=== PATIENT | male | born 1955 | race Caucasian/White ===

== ENCOUNTER → 2019-10-06 | Outpatient (CLI) | payer MEDICARE ==
--- NOTE | 2019-10-06 08:30 | CTL ---
EXAMINATION TYPE: CT Low Dose Lung DATE OF EXAM ORDERED: 10/06/2019 HISTORY: Personal history of tobacco abuse. Lung cancer screening CT DLP: 91.[address] CTDI: 2.4 mGy Automated exposure control for dose reduction was used. SCREENING VISIT: Initial COMPARISON: None TECHNIQUE: Low dose computed tomography scan was performed through the chest at 1 mm thick sections a nd reconstructed images in the coronal plane at [address] DIAGNOSTIC QUALITY: Satisfactory FINDINGS: LUNG NODULES: Present, detailed below: There is a 1 mm solid nodule and the anterolateral right upper lobe on series 4 image 104. There is a 1 mm solid nodule of the left lung apex on series 4 image 57. There is a 3 mm calcified nodule of the left lower lobe on series 4 image 261. LUNGS: COPD: Severity: mild Fibrosis: Severity: none Lymph nodes: none enlarged RIGHT PLEURAL SPACE: Effusion: None Calcification: None Thickening: None Pneumothorax: None LEFT PLEURAL SPACE: Effusion: None Calcification: None Thickening: None Pneumothorax: None HEART: Heart Size: None Coronary calcification: None Pericardial effusion: None OTHER FINDINGS: Upper abdomen: Unenhanced Bony thorax: Mild multilevel degenerative change of the spine. Sclerotic lesion of the T10 vertebral body is indeterminant but isn't contiguous with the endplates and may be degenerative. This measures 1.5 x 1.1 cm. Supraclavicular region: Unremarkable IMPRESSION: 1. Lung RADS 2-benign appearance or behavior. Nodules with a very low likelihood of becoming a clinic ally significant cancer due to small size. Annual low dose CT is recommended in 12 months. 2. Indeterminant sclerotic lesion of T10. This could be degenerative. If there [facility] could be considered. FOLLOW UP CT CHEST RECOMMENDATION: Annual low dose CT is recommended in [address] LUNG RAD: 2
== END | disposition home or self-care (01) ==
LOC: RADCTMAIN 07:38
PROVIDERS: ATTEND Family Medicine
DX: Z13.6 Encounter for screening for cardiovascular disorders (principal); Z12.2 Encounter for screening for malignant neoplasm of respiratory organs; F17.210 Nicotine dependence, cigarettes, uncomplicated
CPT/HCPCS: 93005; G0297

== ENCOUNTER → 2020-05-17 | Outpatient (CLI) | payer MEDICARE | END | disposition home or self-care (01) | LOC: LABWHC1 15:33 | PROVIDERS: ATTEND Family Medicine | DX: Z20.828 Contact with and (suspected) exposure to other viral communicable diseases (principal) | CPT/HCPCS: U0003; C9803 ==

== ENCOUNTER → 2021-08-22 | Outpatient (CLI) | payer MEDICARE ==
--- NOTE | 2021-08-23 07:31 | XR ---
EXAMINATION TYPE: XR foot complete RT DATE OF EXAM: 08/22/2021 CLINICAL HISTORY: pain TECHNIQUE: Frontal, lateral and oblique images of the right foot are obtained. COMPARISON: None. FINDINGS: There is no acute fracture/dislocation evident. Moderate to severe degenerative change of first metatarsal phalangeal joint with bony spurring subchondral sclerosis seen. Degenerative narrowi ng of first interphalangeal joint noted as well. The overlying soft tissue appears unremarkable. IMPRESSION: There is no acute fracture or dislocation. ICD 10 NO FRACTURE, INITIAL EVALUATION
== END | disposition home or self-care (01) ==
LOC: RADXRMAIN 17:30
PROVIDERS: ATTEND Family Medicine
DX: M79.674 Pain in right toe(s) (principal)

== ENCOUNTER 2022-04-01 06:50 | Day surgery (SDC) | payer MEDICARE ==
[2022-03-28 09:44] VITALS: BMI 34.2
[~2022-04-01 06:50] MED LIST: LACTATED RINGERS 1,000 ML IV SCH; LIDOCAINE 1% (10MG/ML) FOR IV START INTRADERMA PRN
[2022-04-01 07:18] VITALS: RESP 16; TEMP 97
[2022-04-01] MEDS ORDERED: PROPOFOL 10 MG/ML 20 ML VIAL IV ONE (08:12)
[2022-04-01] MEDS ORDERED: LIDOCAINE 2% INJ 20 MG/ML (2 ML VIAL) ONE (08:12)
--- NOTE | 2022-04-01 08:31 | P.PCN ---
Date of Procedure: 04/01/22 Procedure(s) Performed: BRIEF HISTORY: Patient is a 66-year-old pleasant white male scheduled for an elective colonoscopy as a part of evaluation of prior history of colon polyps and intermittent rectal bleeding. PROCEDURE PERFORMED: Colonoscopy. PREOPERATIVE DIAGNOSIS: History of colon polyps. IV sedation per Anesthesia. PROCEDURE: After informed consent was obtained, the patient, was brought into the endoscopy unit. IV sedation was administered by Anesthesia under continuous monitoring. Digital rectal examination was normal. Initially the Olympus CF-160 flexible video colonoscope was then inserted in the rectum, gradually advanced into the cecum without any difficulty. Careful examination was performed as the scope was gradually being withdrawn. Ileocecal valve and the appendiceal orifice were visualized and appeared normal. Prep was excellent. Mucosa of the cecum, ascending colon, transverse colon, descending colon, sigmoid colon, and rectum appeared normal. Scattered sigmoid diverticulosis. Retroflexion was performed in the rectum and grade 2 internal hemorrhoids were seen. The patient tolerated the procedure well. IMPRESSION: Normal-appearing colon from rectum to cecum with no evidence of colorectal neoplasia . Scattered sigmoid diverticulosis Grade 2 internal hemorrhoids RECOMMENDATIONS: Findings of this examination were discussed with the patient as well as his family. He was advised to be a high-fiber diet and take fiber supplements a regular basis and avoid straining and constipation. Recommend repeat screening colonoscopy in 10 years..
[2022-04-01 08:55] VITALS: BP 108/64; PULSE 70
== END 2022-04-01 09:16 | disposition home or self-care (01) ==
LOC: ORWHC2ENDO 06:50
PROVIDERS: ATTEND Internal Medicine Gastroenterology
DX: Z12.11 Encounter for screening for malignant neoplasm of colon (principal); K57.30 Diverticulosis of large intestine without perforation or abscess without bleeding; K64.8 Other hemorrhoids; F17.210 Nicotine dependence, cigarettes, uncomplicated; Z86.010 Personal history of colon polyps
CPT/HCPCS: J2704; J2001; G0105; 45378

== ENCOUNTER → 2022-06-06 | Outpatient (CLI) | payer MEDICARE ==
--- NOTE | 2022-06-09 13:31 | MR ---
EXAMINATION TYPE: MR knee LT wo con DATE OF EXAM: 06/06/2022 COMPARISON: Knee radiograph 06/06/2022 HISTORY: Left knee pain TECHNIQUE: Multiplanar, multisequence imaging of the left knee is performed without IV contrast. FINDINGS: MEDIAL MENISCUS: Complex tear of both the posterior horn which extends into the meniscal body. There is a flipped component felt to be within the intercondylar fossa posteriorly (series 501 image 26 and 701 image 13) additional degeneration with high signal extending to the surface along the meniscal b inessa suggestive of a longitudinal tear on the undersurface. Anterior horn appears intact. LATERAL MENISCUS: Anterior and posterior horns are intact without tear. CRUCIATE LIGAMENTS: The anterior and posterior cruciate ligaments are intact and unremarkable. COLLATERAL LIGAMENTS: Lateral collateral ligament low-grade sprain near the insertion on the femur wi th intermediate signal within the ligament. EXTENSOR MECHANISM: Visualized quadriceps and patellar tendons are intact. EFFUSION: Small joint effusion is present. POPLITEAL CYST: There is a popliteal Saeed's cyst measuring up to 19 x 5 x 30 mm. TRICOMPARTMENT SPACES: Mild osteophyte formation of the tibial plateau and patella. CARTILAGE: Mild cartilage thinning within the compartments most pronounced along the patella medial p atellar facet. No full-thickness defects visualized. BONE MARROW SIGNAL: No focal abnormal marrow signal is appreciated. OTHER: No additional significant abnormality is appreciated. IMPRESSION: 1. Complex medial meniscus posterior horn tear with flipped component within the intercondylar fossa . 2. Low-grade lateral collateral ligament femoral attachment sprain. 3. Small joint effusion 4. Mild osteoarthrosis without full-thickness cartilage defect.
== END | disposition home or self-care (01) ==
LOC: RADMRIMAIN 12:15
PROVIDERS: ATTEND Orthopaedic Surgery
DX: M17.12 Unilateral primary osteoarthritis, left knee (principal); M23.322 Other meniscus derangements, posterior horn of medial meniscus, left knee; M25.462 Effusion, left knee; M25.562 Pain in left knee

== ENCOUNTER → 2022-06-27 | Outpatient (CLI) | payer MEDICARE | END | disposition home or self-care (01) | LOC: LABPAT 10:42 | PROVIDERS: ATTEND Orthopaedic Surgery | DX: Z01.812 Encounter for preprocedural laboratory examination (principal); M23.92 Unspecified internal derangement of left knee | CPT/HCPCS: 93005 ==

== ENCOUNTER 2022-07-03 09:37 | Day surgery (SDC) | payer MEDICARE ==
--- NOTE | 2022-07-02 23:31 | HP ---
HISTORY AND PHYSICAL DATE OF SURGERY: 07/03/2022. HISTORY OF PRESENT ILLNESS: Hermilo Landrum is a 67-year-old gentleman seen with progressive left knee pain. We discussed options for treatment. He elected to proceed with left knee arthroscopy, consent was obtained. PAST MEDICAL HISTORY: Noncontributory. SURGICAL HISTORY: Noncontributory. DAILY MEDICATIONS: None reported. SOCIAL HISTORY: Smokes cigarettes. PHYSICAL EVALUATION OF LEFT KNEE: Range of motion 0 to 130. Tenderness along the medial joint line, tenderness on the lateral joint line. Positive medial Valery's. Positive lateral Valery's. Ligaments are stable. Hip rotation without pain. Distal neurovascular exam is intact. RADIOGRAPHS: Left knee radiographs reveal mild osteoarthritis. MRI left knee revealed medial meniscal tear. IMPRESSION: Internal derangement of left knee with medial meniscal tear. PLAN: Left knee arthroscopy with partial medial meniscectomy and debridement. MMODL / IJN: [id number] /
[~2022-07-03 09:37] MED LIST changes: +DEXAMETHASONE SOD PHOSPHATE 4 MG/ML 1 ML VIAL IV ONE; +HYDROmorphone 0.5 MG/0.5 ML SYRINGE IVP PRN; -LIDOCAINE 1% (10MG/ML) FOR IV START INTRADERMA PRN; +ONDANSETRON 4 MG/2 ML VIAL IVP ONE
[2022-07-03] MEDS ORDERED: LIDOCAINE 1% (10MG/ML) FOR IV START INTRADERMA ONE (10:15)
[2022-07-03] MEDS ORDERED: BUPIVACAINE (PF) 0.25% 30 ML VIAL SQ ONE ×2 (10:29→11:11)
[2022-07-03] MEDS ORDERED: LIDOCAINE 2% INJ 20 MG/ML (2 ML VIAL) ONE (10:32)
[2022-07-03] MEDS ORDERED: SUCCINYLCHOLINE CHLORIDE 200 MG/10 ML VIAL IV ONE (10:32)
[2022-07-03] MEDS ORDERED: PROPOFOL 10 MG/ML 20 ML VIAL IV ONE (10:32)
[2022-07-03] MEDS ORDERED: MIDAZOLAM 2 MG/2 ML VIAL ONE (10:32)
[2022-07-03] MEDS ORDERED: fentaNYL (PF) 50 MCG/ML 2 ML AMP ONE (10:32)
[2022-07-03 11:27] VITALS: TEMP 97
--- NOTE | 2022-07-03 11:27 | P.OP ---
Date of Procedure: 07/03/22 Preoperative Diagnosis: Internal derangement left knee Postoperative Diagnosis: 1. Tear medial meniscus left knee 2. Grade 2 chondromalacia medial femoral condyle left knee 3. Reactive synovitis medial, lateral and suprapatellar compartments left knee Procedure(s) Performed: 1. Arthroscopic partial medial meniscectomy left knee 2. Arthroscopic chondroplasty medial femoral condyle left knee 3. Arthroscopic partial synovectomy medial, lateral and suprapatellar compartments left knee Anesthesia: CANDIDAA, local Surgeon: Hema Wang Estimated Blood Loss (ml): 10 Pathology: none sent Condition: stable Disposition: PACU Indications for Procedure: 67-year-old patient seen with progressive left knee pain. After treatment options were discussed, he elected to proceed with arthroscopy. Operative Findings: See description of procedure Description of Procedure: Patient was taken to the operative suite. Patient underwent a general anesthetic by the department of anesthesia. Patient was given preoperative antibiotics. The left lower extremity was placed in a well-padded arthroscopic leg mullins. The left leg was prepped and draped in the normal sterile orthopedic fashion. A lateral parapatellar and suprapatellar incision was made. Trochars were inserted. Arthroscopy was initiated. Suprapatellar pouch revealed diffuse thick reactive synovitis. The patellofemoral joint appeared to articulate congruently. There was grade 1/2 chondromalacia of the patellofemoral joint without tears. The scope was guided into the medial gutter. No loose bodies or plica were identified. The scope was then guided in to the medial compartment. A medial parapatellar incision was made. Trocar inserted followed by probe. There was a complex tear involving the posterior horn of the medial meniscus. There were grade 2 chondromalacia changes medial femoral condyle with some osteochondral flap tears present. There was some thick reactive synovitis anteriorly. I performed a partial medial meniscectomy getting down to stable meniscal tissue. I performed a chondroplasty of the medial femoral condyle getting down to stable osteochondral tissue. I performed a partial synovectomy decompressing the reactive synovitis. The residual meniscus was stable. The residual osteochondral surface was stable. There was good decompression of the synovitis. Scope and probe were then guided into the intercondylar notch. Cruciates were identified, probed and found to be stable. The scope and probe were then guided into lateral compartment. Lateral meniscus was found to be stable. There were mild grade 1 chondral moist changes lateral compartment without tears. There was some thick reactive synovitis anteriorly. I introduced a motorized shaver and performed a partial synovectomy. Shaver was now removed. There was good decompression of the synovitis. The scope was in guided back into the suprapatellar compartment. I introduced a motorized shaver into the suprapatellar compartment. I debrided some piecemeal fragments of meniscus I encountered. I performed a partial synovectomy. Shaver was now removed. There was good decompression of the synovitis. I took one more look around the entire knee, no residual debris. Instruments were now removed from the joint. The joint was infiltrated with .25% Marcaine. Steri-Strips were applied to the portal sites. Sterile dressings were applied. The patient was placed into a MARIA ISABEL hose. No tourniquet was utilized. The patient was awakened, transferred to a bed and taken to recovery stable satisfactory condition.
[2022-07-03] MEDS ORDERED: HYDROcodone/APAP 5-325MG 1 EACH TAB ONE (12:15)
[2022-07-03 12:43] VITALS: BP 151/72; PULSE 76; RESP 18
== END 2022-07-03 13:09 | disposition home or self-care (01) ==
LOC: OR 09:37
PROVIDERS: ATTEND Orthopaedic Surgery
DX: S83.242A Other tear of medial meniscus, current injury, left knee, initial encounter (principal); M17.12 Unilateral primary osteoarthritis, left knee; M94.262 Chondromalacia, left knee; F17.210 Nicotine dependence, cigarettes, uncomplicated; M65.88 Other synovitis and tenosynovitis, other site; X58.XXXA Exposure to other specified factors, initial encounter
CPT/HCPCS: 29881; J2250; J0330; J1100; J0690; J2405; J3010; J2704; J2001

== ENCOUNTER → 2023-06-01 | Outpatient (CLI) | payer MEDICARE ==
--- NOTE | 2023-06-01 12:40 | CTL ---
EXAMINATION TYPE: CT Low Dose Lung DATE OF EXAM ORDERED: 06/01/2023 HISTORY: Z12.2,Z87.891 PERSONAL HISTORY OF NICOTINE DEPENDE. Lung cancer screening. Current smoker, [address] DLP: 137.[address] CTDI: 3.6 mGy Automated exposure control for dose reduction was used. SCREENING VISIT: Follow-up COMPARISON: CT low-dose lung cancer screening 10/06/2019 TECHNIQUE: Low dose computed tomography scan was performed through the chest at 1 mm thick sections a nd reconstructed images in multiple planes at 1 mm and [address] DIAGNOSTIC QUALITY: Satisfactory FINDINGS: LUNG NODULES: Calcified granuloma within the left lung base. Stable right upper lobe 2 mm pulmonary n odule (series 6, image 20). Stable left apical 2 mm pulmonary nodule (series 6, image 8). No new or e nlarging pulmonary nodules. LUNGS: COPD: Severity: Mild Fibrosis: Severity: None Lymph nodes: None Other findings: None RIGHT PLEURAL SPACE: Effusion: None Calcification: None Thickening: None Pneumothorax: None LEFT PLEURAL SPACE: Effusion: None Calcification: None Thickening: None Pneumothorax: None HEART: Heart Size: Normal Coronary Calcification: None Pericardial Effusion: None OTHER FINDINGS: Upper abdomen: None Bony thorax: Mild degenerative changes of the thoracic spine. Stable sclerosis involving the anterior inferior aspect of the T10 vertebral body from 2019 and consider benign. Supraclavicular region: None Other: None IMPRESSION: 1. Stable pulmonary nodules dating back to 2019 consider benign. No new or enlarging pulmonary nodule s. 2. Mild COPD changes. CT LUNG RAD AND CT CHEST RECOMMENDATION: Lung-Rad 2 Benign Appearance or Behavior: Continue annual sc reening with LDCT in 12 months. S Modifier (other clinically significant findings): None
== END | disposition home or self-care (01) ==
LOC: RADCTMAIN 11:32
PROVIDERS: ATTEND Family Medicine
DX: Z12.2 Encounter for screening for malignant neoplasm of respiratory organs (principal); J44.9 Chronic obstructive pulmonary disease, unspecified; R91.8 Other nonspecific abnormal finding of lung field; F17.210 Nicotine dependence, cigarettes, uncomplicated
CPT/HCPCS: 71271

== ENCOUNTER → 2024-08-12 | Outpatient (CLI) | payer MEDICARE ==
--- NOTE | 2024-08-12 11:35 | CTL ---
EXAMINATION TYPE: CT Low Dose Lung DATE OF EXAM ORDERED: 08/12/2024 COMPARISON: Prior CT is 2022 and 2019 CLINICAL INDICATION: Male, 69 years old with history of F17.210 nicotine dependence; PHH, Current smo ker. 1PPD x54yrs., Lung cancer screening, History of Smoking/tobacco use. TECHNIQUE: Low dose computed tomography scan was performed through the chest at 1 mm thick sections a nd reconstructed images in multiple planes at 1 mm and [address] DLP: 156.[address] CTDI: 4.2 mGy Automated exposure control for dose reduction was used. CT DIAGNOSTIC QUALITY: Satisfactory FINDINGS: Nodules: No new or enlarging greater than 6 mm pulmonary nodules RUL: None. RML: None. RLL: None. DOMINIC: None. LLL: Stable 3 mm calcified nodule or benign granuloma left lung base axial image 207. LUNGS: COPD: Severity: Mild Fibrosis: Severity: None Lymph nodes: None Other findings: None RIGHT PLEURAL SPACE: Effusion: None Calcification: None Thickening: None Pneumothorax: None LEFT PLEURAL SPACE: Effusion: None Calcification: None Thickening: None Pneumothorax: None HEART: Heart Size: Normal Coronary Calcification: Mild Pericardial Effusion: None OTHER FINDINGS: Upper abdomen: None Bony thorax: None Supraclavicular region: None Other: None IMPRESSION: No significant new or enlarging greater than 6 mm noncalcified pulmonary nodules CT LUNG RAD AND CT CHEST RECOMMENDATION: Lung-Rad 2 Benign Appearance or Behavior: Continue annual sc reening with LDCT in 12 months. S Modifier (other clinically significant findings): None [facility], , 08/12/2024 11:32 AM
== END | disposition home or self-care (01) ==
LOC: RADCTMAIN 10:29
PROVIDERS: ATTEND Family Medicine
DX: Z12.2 Encounter for screening for malignant neoplasm of respiratory organs (principal); F17.210 Nicotine dependence, cigarettes, uncomplicated
CPT/HCPCS: 71271

== ENCOUNTER → 2024-08-22 | Outpatient (CLI) | payer MEDICARE ==
--- NOTE | 2024-08-22 09:49 | XR ---
EXAMINATION TYPE: XR chest 2V DATE OF EXAM: 08/22/2024 9:40 AM COMPARISON: CT CLINICAL INDICATION: Male, 69 years old with history of R07.89 OTHER CHEST PAIN; [facility] TECHNIQUE: XR chest 2V Frontal and lateral views of the chest. FINDINGS: Lungs/Pleura: There is no evidence of pleural effusion, focal consolidation, or pneumothorax. Pulmonary vascularity: Unremarkable. Heart/mediastinum: Cardiomediastinal silhouette is unremarkable. Musculoskeletal: No acute osseous pathology. IMPRESSION: No acute cardiopulmonary disease/process. [facility], , 08/22/2024 9:47 AM
== END | disposition home or self-care (01) ==
LOC: RADXRMAIN 09:26
PROVIDERS: ATTEND Family Medicine
DX: R07.89 Other chest pain (principal); W19.XXXA Unspecified fall, initial encounter
CPT/HCPCS: 71046